=== PATIENT | male | born 1990 | race Caucasian/White ===

== ENCOUNTER 2022-03-30 20:59 | Emergency (ER) | payer OTHER, SELFPAY ==
[2022-03-30 21:02] VITALS: BP 148/94; PULSE 88; RESP 18; TEMP 36.4; O2SAT 99; BMI 42.0
--- NOTE | 2022-03-30 22:40 | EDS_ITS ---
HPI History of Present Illness Chief Complaint: Lower Extremity Injury Detail of Chief Complaint: Left foot pain and swelling Informant: patient Onset/Context/Timing Onset: Days Context: Gradual Onset Narrative Narrative: Patient present secondary to pain and swelling in his left foot. He had a Villatoro fracture of his left foot in November. He was nonweightbearing for about 8 weeks and then put into a walking boot. He has been back in a regular shoe for the past month. Last Saturday he noted a red karen over the top of his foot. There was some swelling associated. He went to the [facility] urgent care in [place] and they were concerned for possible blood clot. They sent him to [facility]. X-rays were obtained that showed a very slow healing foot fracture. Ultrasound was not obtained to rule out blood clot. Patient states that he followed with [facility] and is scheduled to see Dr. Nguyễn next week. [facility] Medical History Hypothyroid Home Medications cephalexin 500 mg capsule 500 mg PO Q6 #40 caps 03/30/22 [Rx Last Taken Unknown] levothyroxine 125 mcg capsule 125 mcg PO DAILY 03/30/22 [History Last Taken Unknown] sulfamethoxazole 800 mg-trimethoprim 160 mg tablet (Bactrim DS) 1 tab PO BID #20 tabs 03/30/22 [Rx Last Taken Unknown] Allergy/AdvReac Type Severity Reaction Status Date / Time No Known Allergies Allergy Verified 03/30/22 21:06 Social History Smoking Status: Never smoker ROS ROS ED Constitutional Constitutional ED: Denies chills or fever(s) Eyes Eyes: Denies change in vision or discharge from eye(s) ENT ENT ED: Denies discharge from eye(s), rhinorrhea or sore throat Cardiovascular Cardiovascular: Denies chest pain or palpitations Respiratory/Chest Respiratory/Chest: Denies cough or dyspnea Gastrointestinal Gastrointestinal: Denies abdominal pain, diarrhea, nausea or vomiting Genitourinary Genitourinary ED: Denies difficulty urinating or dysuria Musculoskeletal Musculoskeletal: Reports extremity pain; Denies back pain Integumentary Reports rash; Denies Abrasions Neurologic Neurologic: Denies headache(s) or weakness Psychiatric Psychiatric: Denies anxiety or depression Allergic/Immunologic Allergic/Immunologic ED: Denies lip swelling or urticaria EXAM Physical Exam Const Vital Signs: 03/30/22 21:02 Temperature 97.6 F L Temperature Source Temporal Pulse Rate 88 Respiratory Rate 18 Blood Pressure 148/94 H Blood Pressure Mean 112 Pulse Ox 99 Oxygen Delivery Method Room Air Positive well nourished and well developed General Appearance ED: well developed HEENT Reports normocephalic and head/scalp atraumatic Eyes PERRL and EOMs intact bilaterally Neck supple Chest Wall inspection of chest normal and palpation of chest normal Resp normal respiratory effort and clear to auscultation bilaterally Cardio regular rate and regular rhythm GI normal to inspection, nondistended, normoactive bowel sounds Palpation: soft Back/Spine no CVA tenderness Extremity Extremity Narrative: Right foot edema and erythema. Tenderness of the lateral portion of the foot. Slight lymphangitic streaking noted onto the anterior ankle. No calf or thigh tenderness. Neuro oriented x3 and no sensory deficits noted Sensorium / Orientation: alert Motor Exam: strength 5/5 throughout Psych mental status grossly normal Skin no rashes or lesions noted MDM MDM MDM Narrative Medical decision making narrative: Left lower extremity venous ultrasound obtained. Radiography Diagnostic Testing: Clinical Impression(s) from Imaging Studies Venous Duplex 03/30/22 22:43 IMPRESSION: Normal venous Doppler ultrasound of the lower extremity. Electronically Signed: Carlos Hopson MD at 23:21 EDT , Treatment and Re-Evaluation Narrative: Venous ultrasound reveals no evidence of acute fracture. With patient having erythema and warmth over his foot with slight lymphangitic streaking I do feel he needs to be on antibiotics. He will be started on Bactrim and Keflex. He has a follow-up ointment scheduled with orthopedics this week. Return instructions are provided. Discharge Plan Triage Chief Complaint: Lower Extremity Injury ED Provider: Cathleen Watters Dx/Rx/DC Orders Clinical Impression: Cellulitis Instructions: ED Cellulitis Prescriptions: New sulfamethoxazole-trimethoprim [Bactrim DS] 800-160 mg tablet 1 tab PO BID Qty: 20 0RF cephalexin 500 mg capsule 500 mg PO Q6 Qty: 40 0RF No Action levothyroxine 125 mcg Capsule 125 mcg PO DAILY Primary Care Provider: Stacie Lombardi Referrals: Titi Nguyễn DO [Med Staff - Active Staff] - Keep Chrissie appointment Stacie Lombardi PA [Primary Care Provider] - Disposition Disposition: Home, Self Care
--- NOTE | 2022-03-30 22:43 | US_ITS ---
STUDY: VENOUS DOPPLER ULTRASOUND - LEFT LOWER EXTREMITY REASON FOR EXAM: Male, 31 years old. LT FOOT REDNESS/ SWELLING TECHNIQUE: Ultrasound evaluation of the deep vein system to include nava-scale imaging and compression was performed. Nava-scale imaging and Doppler sonographic evaluation, including duplex spectral analysis and qualitative color flow sonography, was performed. COMPARISON: None. FINDINGS: Common Femoral Vein: Normal compression, spontaneity and augmentation. Normal color Doppler. Common Femoral Vein/Greater Saphenous Junction: Normal compression, spontaneity and augmentation. Normal color Doppler. Deep Femoral Vein: Normal compression, spontaneity and augmentation. Normal color Doppler. Femoral Proximal: Normal compression, spontaneity and augmentation. Normal color Doppler. Femoral Middle: Normal compression, spontaneity and augmentation. Normal color Doppler. Femoral Distal: Normal compression, spontaneity and augmentation. Normal color Doppler. Popliteal Vein: Normal compression, spontaneity and augmentation. Normal color Doppler. Posterior Tibial Vein: Normal compression, spontaneity and augmentation. Normal color Doppler. Peroneal Vein: Normal compression, spontaneity and augmentation. Normal color Doppler. US/Venous Duplex Imag/Limited/Uni IMPRESSION: Normal venous Doppler ultrasound of the lower extremity. Electronically Signed: Carlos Hopson MD at 23:21 EDT ,
[2022-03-30] MEDS: Cephalexin 250 MG Capsule 500 MG PO (23:36)
[2022-03-30] MEDS: Smz/Tmp Ds Tablet 1 TABLET PO (23:36)
[2022-03-30 23:40] VITALS: RESP 16
== END 2022-03-30 23:41 | disposition home or self-care (01) ==
PROVIDERS: Emergency Provider Emergency Medicine; Visit Provider Emergency Medicine
DX: L03.116 Cellulitis of left lower limb (principal); E03.9 Hypothyroidism, unspecified; Z79.899 Other long term (current) drug therapy
CPT/HCPCS: 93971; 99283